=== PATIENT | male | born 1955 | race Caucasian/White ===

== ENCOUNTER 2020-08-11 16:36 | Emergency (ER) | payer BC ==
[2020-08-11] MEDS ORDERED: Diphtheria,Pertussis(Acell),Tetanus Vaccine 0.5 ML Syringe IM ONE (16:52)
[2020-08-11] MEDS ORDERED: Lidocaine 1% 10 ML MDV INJECT ONE (16:52)
--- NOTE | 2020-08-11 17:06 | EDM.PDOC ---
ED HPI GENERAL MEDICAL PROBLEM - General Chief Complaint: Laceration Stated Complaint: LT HAND LAC Time Seen by Provider: 08/11/20 16:46 Source of Information: Reports: Patient History Limitations: Reports: No Limitations - History of Present Illness INITIAL COMMENTS - FREE TEXT/NARRATIVE: The patient presents with a laceration to his left hand. He was using a edge grinder and it got away from him and cut his left hand on the ulnar aspect. He is right handed. He is not sure when his last tetanus was. Onset: Sudden Duration: Minutes: Location: Reports: Upper Extremity, Left (hand) Quality: Reports: Sharp Severity: Mild Improves with: Reports: None Worsens with: Reports: None Associated Symptoms: Reports: No Other Symptoms Left Hand Pain Score (Numeric/FACES): 4 - Related Data Allergies Allergy/AdvReac Type Severity Reaction Status Date / Time No Known Allergies Allergy Verified 08/11/20 16:48 Home Meds: Home Meds Aspirin [Angie Chewable] 81 mg PO DAILY 11/01/15 [History] Losartan [Cozaar] 50 mg PO DAILY 11/01/15 [History] Metoprolol Tartrate [Lopressor] 1 tab PO BID 11/01/15 [History] atorvaSTATin [Lipitor] 40 mg PO BEDTIME 11/01/15 [History] Past Medical History Cardiovascular History: Reports: Hypertension, [place] - Infectious Disease History Infectious Disease History: Reports: Novel Coronavirus - Past Surgical History Cardiovascular Surgical History: Reports: Coronary Artery Stent Male Surgical History: Reports: Lithotripsy ([facility]) Social & Family History - Tobacco Use Tobacco Use Status *Q: Never Tobacco User Second Hand Smoke Exposure: No - Recreational Drug Use Recreational Drug Use: No ED ROS GENERAL - Review of Systems Review Of Systems: See Below Constitutional: Reports: No Symptoms HEENT: Reports: No Symptoms Respiratory: Reports: No Symptoms Cardiovascular: Reports: No Symptoms Endocrine: Reports: No Symptoms GI/Abdominal: Reports: No Symptoms : Reports: No Symptoms Musculoskeletal: Reports: Other (Left hand laceration) ED EXAM, SKIN/RASH Exam: See Below Exam Limited By: No Limitations General Appearance: Alert, No Apparent Distress Ears: Normal External Exam Nose: Normal Inspection Head: Atraumatic, Normocephalic Neck: Normal Inspection Respiratory/Chest: No Respiratory Distress Extremities: Other (5cm laceration to the side of the left hand on the ulnar aspect. Good sensation and capillary refill distally. The patient can move his little finger fine. There is no bleeding now.) ED SKIN PROCEDURES - Laceration/Wound Repair Left Hand Appearance: Subcutaneous, Linear Distal NVT: Neuro & Vascular Intact, No Tendon Injury Anesthetic Type: Local Local Anesthesia - Lidocaine (Xylocaine): 1% with EPI Skin Prep: Saline Exploration/Debridement/Repair: Wound Explored, In a Bloodless Field, Explored to Base Closed with: Sutures Lac/Wound length In cm: 4 Suture Size: 4-0 # of Sutures: 7 Suture Type: Nylon, Interrupted, Simple Tetanus Status Addressed: Yes Complications: No Course - Vital Signs Last Recorded V/S: Last Vital Signs Temp 97.5 F 08/11/20 16:46 Pulse 79 08/11/20 16:46 Resp 16 08/11/20 16:46 BP 118/74 08/11/20 16:46 Pulse Ox 97 08/11/20 16:46 - Orders/Labs/Meds Orders: Active Orders 24 hr Category Date Time Status Vaccines to be Administered [RC] PER UNIT ROUTINE Care 08/11/20 16:53 Active Meds: Medications Discontinued Medications Generic Name Dose Route Start Last Admin Trade Name Freq PRN Reason Stop Dose Admin Diphtheria/Tetanus/Acell Pertussis 0.5 ml 08/11/20 16:52 08/11/20 17:03 Diphtheria,Pertussis(Acell),Tetanus Vaccine 0.5 Ml Syringe IM 08/11/20 16:53 0.5 ml .ONCE ONE Administration Lidocaine HCl 10 ml 08/11/20 16:52 08/11/20 17:01 Lidocaine 1% 10 Ml Mdv INJECT 08/11/20 16:53 10 ml ONETIME ONE Administration - Re-Assessments/Exams Free Text/Narrative Re-Assessment/Exam: 08/11/20 16:59 I will suture his wound and update his tetanus. 08/11/20 17:24 Departure - Departure Time of Disposition: 17:25 Disposition: Home, Self-Care 01 Condition: Good Clinical Impression: Laceration of left hand Qualifiers: Encounter type: initial encounter Foreign body presence: without foreign body Qualified Code(s): S61.412A - Laceration without foreign body of left hand, initial encounter - Discharge Information *PRESCRIPTION DRUG MONITORING PROGRAM REVIEWED*: Not Applicable *COPY OF PRESCRIPTION DRUG MONITORING REPORT IN PATIENT ZACK: Not Applicable Referrals: Danny Ramírez MD [Primary Care Provider] - 1 Week Forms: ED Department Discharge Additional Instructions: Soak your hand in warm soapy water 2 times per day and apply antibiotic ointment after. Have the sutures removed within a week. Look for any signs of infection such as redness, swelling, pain or drainage. If you see any of these signs please return or see your doctor. You may need oral antibiotics. Sepsis Event Note (ED) - Evaluation Sepsis Screening Result: No Definite Risk - Focused Exam Vital Signs: Vital Signs Temp Pulse Resp BP Pulse Ox 08/11/20 16:46 97.5 F 79 16 118/74 97 - My Orders Last 24 Hours: My Active Orders 08/11/20 16:53 Vaccines to be Administered [RC] PER UNIT ROUTINE - Assessment/Plan Last 24 Hours: My Active Orders 08/11/20 16:53 Vaccines to be Administered [RC] PER UNIT ROUTINE
[2020-08-11 17:45] VITALS: BP 130/70; PULSE 70
== END 2020-08-11 17:45 | disposition home or self-care (01) ==
LOC: JD.ED 16:36
DX: S61.412A Laceration without foreign body of left hand, initial encounter (principal); I10 Essential (primary) hypertension; I25.2 Old myocardial infarction; Z23 Encounter for immunization; Z86.16 Personal history of COVID-19; Z79.82 Long term (current) use of aspirin; Z79.899 Other long term (current) drug therapy; W26.8XXA Contact with other sharp object(s), not elsewhere classified, initial encounter
CPT/HCPCS: 12002; 90471; 90715; 99282; 99282-25